=== PATIENT | female | born 1955 | race Caucasian/White ===

== ENCOUNTER 2016-06-10 15:49 | Emergency (ER) | payer MEDICARE, MEDICAID ==
[~2016-06-10] VITALS: Ht 160 cm; Wt 59.0 kg
[~2016-06-10 15:49] MED LIST: ACHYD1T PO; ALPR.5T PO; ALPR1TAB7 PO; AMIT75TA2 PO; ATOR20TA54 PO; BPR150TCR PO; CEPH-331 PO; CYCL10TA45 PO; EZET10TA5 PO; HYDR-3708 PO; MORP-34 PO
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
[2016-06-10 16:26] LABS: BASOPHILS % (AUTO) 1 % (0-2); EOSINOPHILS # (AUTO) 0.2 10^3uL; EOSINOPHILS % (AUTO) 2 % (0-4); LYMPHOCYTES # (AUTO) 4.7 X10^3; MEAN CORPUSCULAR HEMOGLOBIN 29.7 PG (26.0-34.0); MEAN CORPUSCULAR HGB CONC 33.5 g/dL (31.0-37.0); MEAN CORPUSCULAR VOLUME 89 FL (80-100); MEAN PLATELET VOLUME 9.3 FL (6.0-9.5); MONOCYTES # (AUTO) 0.7 X10^3; MONOCYTES % (AUTO) 6 % (3-11); NEUTROPHILS # (AUTO) 6.4 X10^3; NEUTROPHILS % (AUTO) 53 % (51-67); PLATELET COUNT 403 10^3uL (150-450); WHITE BLOOD COUNT 12.13 10^3uL (4.0-11.0)
[2016-06-10 16:31] LABS: BILIRUBIN,URINE Negative (Negative); COLOR,URINE Yellow; GLUCOSE, URINE (UA) Negative (Negative); LEUKOCYTE ESTERASE ,URINE 2+ (Negative); PH,URINE 7.5 (5.0 - 8.0); UROBILINOGEN,URINE 0.2 mg/dL (0.2-1.0)
[2016-06-10 16:33] LABS: CLARITY,URINE Slightly Cloudy
[2016-06-10 16:39] LABS: RBC,URINE 0-2 /HPF; URINE CENTRIFUGED VOLUME 12 mL
[2016-06-10 16:43] LABS: AMPHETAMINE SCREEN, URINE Negative (Negative); CANNABINOID SCREEN, URINE Negative (Negative); METHAMPHETAMINE SCREEN URINE S NEGATIVE (NEGATIVE); OPIATE SCREEN URINE Positive (Negative); PROPOXYPHENE STAT NEGATIVE (NEGATIVE)
[2016-06-10 16:51] LABS: ALKALINE PHOSPHATASE 91 U/L (38-126); ANION GAP 13.4 MEQ/L (3-15); BUN/CREATININE RATIO 13 (10-20); CALCULATED IONIZED CALCIUM 4.1 mg/dL (3.8-4.6)
--- NOTE | 2016-06-10 17:24 | NUR ---
on tele cast with renetta from [facility]
[2016-06-10 17:38] VITALS: BP 165/105
[2016-06-10] MEDS ORDERED: CPR500T PO (17:43)
[2016-06-10] MEDS ORDERED: HYDR-3702 PO (17:43)
--- NOTE | 2016-06-10 18:28 | NUR ---
Pt had called this nurse out to the lobby for a question on her script. Pt stated that she is to recieve 10mg/325 instead of 15mg/325. Original script was for 5mg/325 nord[place] and pt had written in a 1 in front of the 5mg/325. This nurse told her that the script was for 5mg/325 and pt was ok with that and acted as if she made a mistake.
--- NOTE | 2016-06-10 19:00 | NUR ---
MD Altamirano voided script, made a copy for record, and told MD Tovar about pt.
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
--- NOTE | 2016-06-12 18:56 | NUR ---
Patient seen by me recently, given an Rx for [place] which she altered in our waiting room while awaiting a ride and we discovered it. She wrote in the number 1 in front of the 5 to create a '15.' I took the Rx away from her and advised we would not be giving her any narcotics from this ER in the future, and asked her to leave immediately, and advised that if she didn't, I would report her to the [facility].
[2016-06-18] MEDS ORDERED: MORP30CA16 PO (13:05)
[2016-06-19] MEDS ORDERED: CEFD300C PO (11:20)
== END 2016-06-10 17:55 | disposition home or self-care (01) ==
LOC: ED 15:49
DX: K62.89 Other specified diseases of anus and rectum (principal); M79.7 Fibromyalgia; N39.0 Urinary tract infection, site not specified; F43.11 Post-traumatic stress disorder, acute; T74.21XD Adult sexual abuse, confirmed, subsequent encounter; F60.9 Personality disorder, unspecified; Z79.899 Other long term (current) drug therapy
CPT/HCPCS: 36415; 80053; 81003; 81015; 84443; 85025; 86140; 87088; 99283; G0478; G0480; 80307; 80320; 80329; 87077; 87186

== ENCOUNTER 2016-06-18 05:43 | Inpatient (IN) | payer MEDICARE, MEDICAID ==
[~2016-06-18] VITALS: Ht 160 cm; Wt 58.5 kg
[2016-06-18] MEDS ORDERED: CIPROFLOXACIN 0.3% OD ONE (06:05)
[2016-06-18 06:48] LABS: MEAN CORPUSCULAR HEMOGLOBIN 30.2 PG (26.0-34.0); MEAN CORPUSCULAR HGB CONC 35.1 g/dL (31.0-37.0); MEAN CORPUSCULAR VOLUME 86 FL (80-100); MEAN PLATELET VOLUME 9.2 FL (6.0-9.5); PLATELET COUNT 489 10^3uL (150-450); WHITE BLOOD COUNT 24.06 10^3uL (4.0-11.0)
[2016-06-18 07:02] LABS: BAND NEUTROPHILS % 0 % (0-6); EOSINOPHILS % 2 % (0-4); LYMPHOCYTES # 3.1 #; MONOCYTES % 4 % (3-11); RBC MORPH NORMAL (NORMAL); SEGMENTED NEUTROPHILS % 81 % (51-67); TOTAL CELLS COUNTED 100
[2016-06-18 07:03] LABS: ALBUMIN 4.6 g/dL (3.4-5.0); ALKALINE PHOSPHATASE 97 U/L (38-126); BUN/CREATININE RATIO 33 (10-20); CALCULATED IONIZED CALCIUM 4.1 mg/dL (3.8-4.6); TOTAL PROTEIN 7.9 g/dL (6.4-8.5)
[2016-06-18 08:58] LABS: COLOR,URINE Yellow; GLUCOSE, URINE (UA) Negative (Negative); LEUKOCYTE ESTERASE ,URINE Trace (Negative); PH,URINE 5.5 (5.0 - 8.0); UROBILINOGEN,URINE 0.2 mg/dL (0.2-1.0)
[2016-06-18 09:03] LABS: MAGNESIUM* 2.6 mg/dL (1.6-2.3); PHOSPHORUS 4.5 mg/dL (2.4-4.9)
[2016-06-18 09:09] LABS: BILIRUBIN,URINE 2+ (Negative); CLARITY,URINE Slightly Cloudy
[2016-06-18 09:15] LABS: URINE CENTRIFUGED VOLUME 12 mL
[2016-06-18 09:16] LABS: AMPHETAMINE SCREEN, URINE Positive (Negative); CANNABINOID SCREEN, URINE Negative (Negative); METHAMPHETAMINE SCREEN URINE S POSITIVE (NEGATIVE); OPIATE SCREEN URINE Negative (Negative); PROPOXYPHENE STAT NEGATIVE (NEGATIVE)
[2016-06-18] MEDS ORDERED: cefTRIAXone SODIUM 1,000 MG in SODIUM CHLORIDE 50 ML IV ONE (09:55)
[2016-06-18 11:15] VITALS: BP 136/84
[2016-06-18] MEDS ORDERED: ACETAMINOPHEN 325 MG TAB (TYLENOL) PO PRN (11:35)
[2016-06-18] MEDS ORDERED: ONDANSETRON 2 MG/ML (Z0FRAN) 2 ML VIAL IV PRN (11:35)
[2016-06-18] MEDS ORDERED: IBUPROFEN 600 MG (MOTRIN) TAB PO PRN (11:35)
[2016-06-18] MEDS ORDERED: SODIUM CHLORIDE FLUSH 10 ML ONE ×2 (11:48→18:03)
[2016-06-18 15:43] VITALS: BP 119/73
[2016-06-19 00:06] VITALS: BP 112/73
[2016-06-19 06:09] LABS: BASOPHILS % (AUTO) 0 % (0-2); EOSINOPHILS # (AUTO) 0.1 10^3uL; EOSINOPHILS % (AUTO) 1 % (0-4); LYMPHOCYTES # (AUTO) 3.9 X10^3; MEAN CORPUSCULAR HEMOGLOBIN 29.8 PG (26.0-34.0); MEAN CORPUSCULAR HGB CONC 33.7 g/dL (31.0-37.0); MEAN CORPUSCULAR VOLUME 88 FL (80-100); MEAN PLATELET VOLUME 9.2 FL (6.0-9.5); MONOCYTES # (AUTO) 0.9 X10^3; MONOCYTES % (AUTO) 6 % (3-11); NEUTROPHILS % (AUTO) 68 % (51-67); PLATELET COUNT 416 10^3uL (150-450); WHITE BLOOD COUNT 16.13 10^3uL (4.0-11.0)
[2016-06-19 06:30] LABS: ALBUMIN 3.5 g/dL (3.4-5.0); ANION GAP 13.2 MEQ/L (3-15); CALCULATED IONIZED CALCIUM 4.2 mg/dL (3.8-4.6); MAGNESIUM* 2.3 mg/dL (1.6-2.3); TOTAL PROTEIN 6.6 g/dL (6.4-8.5)
[2016-06-19 08:25] VITALS: BP 150/89
[2016-06-19] MEDS: ENOXAPARIN 40 MG/0.4 ML (LOVENOX) SYR SC SCH (08:54)
[2016-06-19] MEDS ORDERED: cefTRIAXone SODIUM 1,000 MG in SODIUM CHLORIDE 50 ML IV SCH (11:40)
[2016-06-19] MEDS ORDERED: NS FLUSH 10 ML PRN IV (12:40)
[2016-06-19] MEDS ORDERED: NS FLUSH 3 ML PRN IV (12:40)
[2016-06-19 17:09] VITALS: BP 152/100
[2016-06-19] MEDS ORDERED: HALOPERIDOL 5 MG/ML (HALDOL) 1 ML AMP IM PRN (23:05)
[2016-06-19] MEDS: QUEtiapine 25 MG (SEROquel) TAB IMMEDIATE RELEASE PO SCH (23:06)
[2016-06-19] MEDS: ALPRAZolam 0.5 MG (XANAX) TAB PO PRN ×2 (23:06→23:14)
[2016-06-20 00:08] VITALS: BP 140/75
[2016-06-20 07:50] VITALS: BP 136/70
[2016-06-20] MEDS: QUEtiapine 25 MG (SEROquel) TAB IMMEDIATE RELEASE PO SCH (08:01)
[2016-06-20] MEDS: ENOXAPARIN 40 MG/0.4 ML (LOVENOX) SYR SC SCH (08:02)
[2016-06-20] MEDS ORDERED: NS FLUSH 3 ML DAILY IV SCH (09:00)
[2016-06-20 09:08] LABS: BASOPHILS % (AUTO) 1 % (0-2); EOSINOPHILS # (AUTO) 0.1 10^3uL; EOSINOPHILS % (AUTO) 1 % (0-4); LYMPHOCYTES # (AUTO) 3.5 X10^3; MEAN CORPUSCULAR HEMOGLOBIN 29.8 PG (26.0-34.0); MEAN CORPUSCULAR HGB CONC 33.5 g/dL (31.0-37.0); MEAN CORPUSCULAR VOLUME 89 FL (80-100); MEAN PLATELET VOLUME 9.7 FL (6.0-9.5); MONOCYTES # (AUTO) 0.6 X10^3; MONOCYTES % (AUTO) 5 % (3-11); NEUTROPHILS # (AUTO) 7.7 X10^3; NEUTROPHILS % (AUTO) 64 % (51-67); PLATELET COUNT 420 10^3uL (150-450); WHITE BLOOD COUNT 12.04 10^3uL (4.0-11.0)
[2016-06-20 09:21] LABS: ALBUMIN 3.8 g/dL (3.4-5.0); ANION GAP 13.9 MEQ/L (3-15); CALCULATED IONIZED CALCIUM 4.2 mg/dL (3.8-4.6); TOTAL PROTEIN 6.9 g/dL (6.4-8.5)
[2016-06-20] MEDS ORDERED: cefTRIAXone 1 GM (ROCEPHIN) VIAL IM ONE (11:30)
[2016-06-20] MEDS ORDERED: LIDOCAINE PF 1% (XYLOCAINE) 2 ML VIAL INJ ONE (11:30)
[2016-06-20] MEDS: ALPRAZolam 0.5 MG (XANAX) TAB PO PRN ×2 (11:31→16:01)
[2016-06-20 15:25] VITALS: BP 116/75
[2016-06-21] MEDS ORDERED: CEFDINIR 300 MG (OMNICEF) CAPSULE PO SCH (21:00)
== END 2016-06-20 16:18 | DRG 872 ==
LOC: EDUNIT# 05:43 → ED 05:44 → OBSVTOIN 10:11 → UNDOADMOB 10:11 → MED/SURG 10:11
PROVIDERS: ADMIT Family Medicine; ATTEND Family Medicine
DX: A41.9 Sepsis, unspecified organism (principal); N39.0 Urinary tract infection, site not specified; E86.0 Dehydration; F29 Unspecified psychosis not due to a substance or known physiological condition; F19.10 Other psychoactive substance abuse, uncomplicated; F43.10 Post-traumatic stress disorder, unspecified; M79.7 Fibromyalgia; F32.9 Major depressive disorder, single episode, unspecified; F41.9 Anxiety disorder, unspecified; B96.20 Unspecified Escherichia coli [E. coli] as the cause of diseases classified elsewhere
CPT/HCPCS: 36415; 80053; 80307; 80320; 80329; 81003; 81015; 83605; 83735; 84100; 84550; 85025; 87040; 87088; 96361; 96365; 99284; 99285